=== PATIENT | female | born 1955 | race Caucasian/White ===

== ENCOUNTER → 2019-06-20 | Outpatient (CLI) | payer MEDICARE, OTHER ==
[~2019-06-20] MED LIST: NONE CURRENT
--- NOTE | 2019-06-21 09:57 | RADIOLOGY IMAGING REPORT ---
FACILITY: [facility] PATIENT NAME: CHAGO URIOSTEGUI : [id number] MR: [id number]: [id number] EXAM DATE: ORDERING PHYSICIAN: CARON HUGGINS TECHNOLOGIST: Roopa La PROCEDURE: BILATERAL DIGITAL SCREENING MAMMOGRAM WITH CAD ASSISTED INTERPRETATION & 3D TOMOSYNTHESIS. REASON FOR STUDY: Screening. FAMILY HISTORY OF BREAST CANCER: None. FAMILY HISTORY OF OVARIAN CANCER: Great maternal aunt. BREAST PROCEDURES/TREATMENTS: None. COMPARISON: 09/17/17, 09/16/16, 02/07/16, 01/31/16, 11/09/14. VIEWS OBTAINED: Bilateral 2D & 3D full field CC & MLO projections. BREAST DENSITY: There are scattered areas of fibroglandular density throughout the breasts. MAMMOGRAM FINDINGS: The circumscribed lobular mass in the 8-9 o'clock position of the Left breast in the middle depth appears relatively unchanged. The remainder of the parenchymal pattern likewise has remained unchanged throughout both breasts. IMPRESSION: BIRADS 2: Benign finding. DIAGNOSTIC CATEGORY 2--BENIGN FINDING. RECOMMENDATIONS: ROUTINE MAMMOGRAM AND CLINICAL EVALUATION. Dictated by: Agnieszka Brush M.D. on 06/20/2019 at 16:43 Transcribed by: GEGE on 06/21/2019 at 8:59 Approved by: Agnieszka Brush M.D. on 06/21/2019 at 9:52 [facility]
== END ==
LOC: MAMO 00:39
PROVIDERS: ATTEND Nurse Practitioner Family
DX: Z12.31 Encounter for screening mammogram for malignant neoplasm of breast (principal)
CPT/HCPCS: 77063; 77067